=== PATIENT | male | born 1970 | race Caucasian/White ===

== ENCOUNTER 2019-10-29 10:13 | Inpatient (IN) ==
[2019-10-29 10:49] LABS: Basophils # 0.1 K/mcL (0.0-0.2); Basophils % 0.7 %; Eosinophils # 0.1 K/mcL (0.0-0.6); Eosinophils % 0.6 %; Hematocrit 44.3 % (37.5-50.1); Hemoglobin 14.7 g/dL (12.9-16.9); Immature Granulocytes % 0.3 % (0-4); Lymphocytes % 22.6 %; Mean Corpuscular HGB Conc 33.2 g/dL (31.6-35.5); Mean Corpuscular Hemoglobin 28.3 pg (28.0-33.3); Mean Corpuscular Volume 85.4 fL (83.0-100.0); Monocytes # 0.8 K/mcL (0.0-1.3); Monocytes % 8.8 %; Neutrophils # 5.8 K/mcL (1.6-8.9); Platelet Count 422 K/mcL (140-400); Red Blood Count 5.19 M/mcL (4.19-5.50); Red Cell Distribution Width 14.1 % (11.5-14.5); White Blood Count 8.7 K/mcL (4.3-11.1)
[2019-10-29 11:13] LABS: Acetaminophen < 10 mcg/mL (10-20); BUN/Creatinine Ratio 8 (6-26); Blood Urea Nitrogen 13 mg/dL (6-20); Calcium 9.8 mg/dL (8.6-10.3); Carbon Dioxide 26 mEq/L (23-29); Chloride 101 mEq/L (98-107); Ethanol < 10 mg/dL (Less than 10); Glucose 112 mg/dL (70-105); Osmolality,Calculated 285 (280-300); Potassium 3.1 mEq/L (3.5-5.1); Salicylate < 2.5 mg/dL (15.0-30.0); Sodium 137 mEq/L (136-145); eGFR For African Americans 55 (> 60); eGFR For Non-African Americans 45 (> 60)
[2019-10-29] MEDS ORDERED: 0.9 % Sodium Chloride 1,000 ML IVC STA ×2 (11:18)
[2019-10-29 11:23] LABS: Thyroid Stimulating Hormone 14.254 mcIU/mL (0.340-5.600)
[2019-10-29 11:24] LABS: Bilirubin,Urine Small (Negative); Blood,Urine Negative (Negative); Clarity,Urine Clear (Clear); Color,Urine Dark Yellow (Yellow); Glucose,Urine (UA) Normal (Normal); Ketones,Urine Trace mg/dL (Negative); Leukocyte Esterase,Urine Negative (Negative); Nitrite,Urine Negative (Negative); PH,Urine 6.5 pH Units (5.0-8.0); Protein,Urine 30 mg/dL (Neg-Trace); Specific Gravity,Urine 1.028 (1.010-1.025); Urobilinogen,Urine Normal (Normal)
[2019-10-29 11:27] LABS: Bacteria,Urine None Seen per hpf (None-Few); Hyaline Casts,Urine Moderate per lpf (None-Few); RBC,Urine 0-3 per hpf (0-3); Squamous Epithelial Cell,Urine Many per lpf (None-Few)
[2019-10-29 12:20] LABS: Amphetamine Screen,Urine Negative ng/mL (Cutoff=1000); Barbiturate Screen,Urine Negative ng/mL (Cutoff=200); Benzodiazepines Screen,Urine Negative ng/mL (Cutoff=200); Cannabinoid Screen,Urine Negative ng/mL (Cutoff = 50); Cocaine Screen,Urine Negative ng/mL (Cutoff= 300); Opiate Screen,Urine Negative ng/mL (Cutoff=300); Phencyclidine Screen,Urine Negative ng/mL (Cutoff=25)
[2019-10-29] MEDS ORDERED: *HR* LORazepam 2 MG/ML VIAL IM PRN (14:32)
[2019-10-29] MEDS ORDERED: haloperidoL 5 MG TABLET PO PRN (14:32)
[2019-10-29] MEDS ORDERED: Mag Hydrox/Al Hydrox/Simeth 30 ML UDC PO PRN (14:32)
[2019-10-29] MEDS ORDERED: *HR* LORazepam 1 MG TABLET PO PRN (14:32)
[2019-10-29] MEDS ORDERED: Ibuprofen 400 MG TABLET PO PRN (14:32)
[2019-10-29] MEDS ORDERED: Haloperidol Lactate 5 MG/ML VIAL IM PRN (14:32)
[2019-10-29] MEDS ORDERED: MOM Conc 10 ML UD.LIQ PO PRN (14:32)
[2019-10-29] MEDS: hydrOXYzine pamoate 25 MG CAPSULE PO PRN (20:10)
[2019-10-29] MEDS: traZODone 50 MG TABLET PO PRN (20:10)
[2019-10-30] MEDS: hydroCHLOROthiazide 25 MG TABLET PO SCH (10:05)
[2019-10-30] MEDS: amLODIPine 5 MG TABLET PO SCH (10:06)
[2019-10-30] MEDS: Famotidine 20 MG TABLET PO SCH (10:06)
[2019-10-30] MEDS: traZODone 50 MG TABLET PO PRN (21:38)
[2019-10-30] MEDS: hydrOXYzine pamoate 25 MG CAPSULE PO PRN (21:38)
[2019-10-31] MEDS: Famotidine 20 MG TABLET PO SCH ×2 (08:23→21:13)
[2019-10-31] MEDS: hydroCHLOROthiazide 25 MG TABLET PO SCH (08:23)
[2019-10-31] MEDS: amLODIPine 5 MG TABLET PO SCH (08:24)
[2019-10-31 11:11] LABS: Triiodothyronine (T3) Free 3.26 pg/mL (2.50-3.90)
[2019-10-31 11:15] LABS: Triiodothyronine (T3) Total 0.78 ng/mL (0.87-1.78)
[2019-10-31] MEDS: hydrOXYzine pamoate 25 MG CAPSULE PO PRN (21:14)
[2019-10-31] MEDS: traZODone 50 MG TABLET PO PRN (21:14)
[2019-11-01 08:32] VITALS: BP 129/89
[2019-11-01] MEDS: amLODIPine 5 MG TABLET PO SCH (08:58)
[2019-11-01] MEDS: hydroCHLOROthiazide 25 MG TABLET PO SCH (08:59)
[2019-11-01] MEDS: Famotidine 20 MG TABLET PO SCH (08:59)
== END 2019-11-01 12:35 | disposition home or self-care (01) | DRG 751 ==
LOC: EMEROOARM 10:13 → 1ANU 14:30
PROVIDERS: ADMIT Psychiatry & Neurology Psychiatry; ATTEND Psychiatry & Neurology Psychiatry